=== PATIENT | male | born 1965 | race Caucasian/White ===

== ENCOUNTER 2019-02-28 12:53 | Inpatient (IN) | payer OTHER ==
[~2019-02-28] VITALS: Ht 177.8 cm; Wt 88.9 kg
[2019-03-05] MEDS ORDERED: LEVAQUIN750 MG PO (19:27)
[2019-03-05] MEDS ORDERED: OSEL75CA PO (19:27)
[2019-03-05] MEDS ORDERED: TUSSIN DM LIQU118 ML PO (19:27)
[2019-03-05] MEDS ORDERED: BENZONATATE100 MG PO (19:27)
== END 2019-03-05 19:45 | disposition home or self-care (01) | DRG 194 ==
LOC: ER 12:53 → EDBD 13:01 → ER 13:01 → MEDI 03-01 08:01 → SEC-K 03-01 08:01 → MEDJ 03-01 10:18 → SEC-K 03-01 12:18 → MEDJ 03-01 17:06 → MEDI 03-01 17:06 → SURH 03-04 11:49
PROVIDERS: ADMIT Internal Medicine
PROC: BB24ZZZ Computerized Tomography (CT Scan) of Bilateral Lungs (ICD-10-PCS; principal; 2019-03-01)
PROC: 3E0F7GC Introduction of Other Therapeutic Substance into Respiratory Tract, Via Natural or Artificial Opening (ICD-10-PCS; 2019-03-02)
PROC: 8E0ZXY6 Isolation (ICD-10-PCS; 2019-03-02)
DX: J16.8 Pneumonia due to other specified infectious organisms (principal); J98.11 Atelectasis; R65.10 Systemic inflammatory response syndrome (SIRS) of non-infectious origin without acute organ dysfunction; R50.9 Fever, unspecified; E86.0 Dehydration